=== PATIENT | female | born 1985 | race Two or more races ===

== ENCOUNTER 2021-09-17 10:09 | Emergency (ER) | payer MEDICAID ==
[~2021-09-17] VITALS: Ht 152.4 cm; Wt 62.0 kg
[2021-09-17] MEDS ORDERED: FAMOTIDINE 20MG/2ML VIAL IV ONE (12:45)
[2021-09-17] MEDS ORDERED: MECLIZINE 12.5MG TABLET PO ONE (12:45)
[2021-09-17] MEDS ORDERED: SODIUM CHLORIDE 0.9% 1,000 ML IV ONE (12:45)
[2021-09-17] MEDS ORDERED: ONDANSETRON 4MG ODT PO ONE (12:45)
[2021-09-17 13:53] LABS: BASOPHILS % 0.6 % (0.0-2.0); EOSINOPHILS % 0.9 % (0.0-5.0); HEMATOCRIT. 46.3 % (36.0-48.0); HEMOGLOBIN. 16.1 g/dL (12.0-16.0); LYMPHOCYTES % 23.1 % (20.0-50.0); MEAN CORPUSCULAR HEMOGLOBIN 32.3 pg (28.0-32.0); MEAN CORPUSCULAR VOLUME 93.2 fL (81.0-99.0); MEAN PLATELET VOLUME 8.4 fl (7.4-10.4); MONOCYTES % 3.4 % (2.0-8.0); PLATELET 313 x1000/uL (130-400); RED BLOOD CELL COUNT 4.96 mill/uL (4.2-5.4); RED CELL DISTRIBUTION WIDTH 12.6 % (11.6-14.6)
[2021-09-17 13:56] LABS: CHLORIDE 107 mEq/L (98-107)
[2021-09-17] MEDS ORDERED: DIPHENHYDRAMINE 50MG/ML VIAL IV ONE (15:30)
[2021-09-17] MEDS ORDERED: KETOROLAC 30MG/ML VIAL IV ONE (15:30)
[2021-09-17] MEDS ORDERED: MECL-217 MT (17:02)
[2021-09-17] MEDS ORDERED: NAPR-1176 MT (17:02)
[2021-09-17 17:10] VITALS: BP 111/59
== END 2021-09-17 17:18 | disposition home or self-care (01) ==
LOC: ER 10:09
DX: H81.10 Benign paroxysmal vertigo, unspecified ear (principal); R51.9 Headache, unspecified
CPT/HCPCS: 36415; 71045; 80053; 81025; 85025; 93005; 96374; 96375; 99285; J1200; J1885; J3490; J7030; J8597; Q0162